=== PATIENT | female | born 1950 | race Caucasian/White ===

== ENCOUNTER → 2022-02-09 | Emergency (ER) | payer MEDICARE, OTHER ==
[~2022-02-09] VITALS: Ht 152.4 cm; Wt 68.0 kg
[~2022-02-09] MED LIST: KETOROLAC TROMETHAMINE INJ 30 MG/ML VIAL IM ONE; KETOROLAC TROMETHAMINE INJ 30 MG/ML VIAL ONE
--- NOTE | 2022-02-09 09:10 | NUR ---
BIBFAMILY C/O RIGHT SHOULDER AND ARM PAIN S/P GL[facility] 1MONTH AGO
--- NOTE | 2022-02-09 09:25 | NUR ---
at bed side
--- NOTE | 2022-02-09 09:30 | NUR ---
digital technician at bedside
--- NOTE | 2022-02-09 10:25 | NUR ---
medicated as ordered
--- NOTE | 2022-02-09 10:50 | NUR ---
Patient discharged to home in stable condition. Written and verbal after care instructions given. Patient verbalizes understanding of instruction.
[2022-02-09 10:52] VITALS: BP 150/90
== END | disposition home or self-care (01) ==
LOC: ER 08:52
DX: S49.91XA Unspecified injury of right shoulder and upper arm, initial encounter (principal); I10 Essential (primary) hypertension; E78.00 Pure hypercholesterolemia, unspecified; Z88.8 Allergy status to other drugs, medicaments and biological substances; W18.30XA Fall on same level, unspecified, initial encounter; Y93.89 Activity, other specified; Y92.89 Other specified places as the place of occurrence of the external cause; Y99.8 Other external cause status
CPT/HCPCS: 99283; 96372; 73030; J1885